=== PATIENT | female | born 1960 ===

== ENCOUNTER 2016-09-24 15:41 | Emergency (ER) | payer SELFPAY ==
[2016-09-24 15:51] VITALS: TEMP 97.7; O2SAT 100
--- NOTE | 2016-09-24 16:29 | ED PDOC ---
HPI: General Adult Time Seen by Provider: 09/24/16 15:53 Chief Complaint (Nursing): Abnormal Labs Chief Complaint (Provider): Abnormal Labs History Per: Patient History/Exam Limitations: no limitations Onset/Duration Of Symptoms: Days (since yesterday) Have you had recent travel within the past 21 days to any of the following countries: [place], [place], [place] or [place]?: No Current Symptoms Are (Timing): Still Present Severity: Mild Additional Complaint(s): Alina Mancia is a 56 year old female, with a past medical history of hypertension and chronic renal insufficiency, who presents to the emergency department for the evaluation of abnormal labs. Patient had lab work taken at a clinic yesterday and was prompted to come directly to the emergency room because something was abnormal; however, the patient is not unsure exactly what. She is otherwise in a normal state of health. Denies any other medical complaints. PMD: Meggan Breen Past Medical History Reviewed: Historical Data, Nursing Documentation, Vital Signs Vital Signs: Last Vital Signs Temp 97.7 F 09/24/16 15:48 Pulse 57 L 09/24/16 15:48 Resp 19 09/24/16 15:48 BP 136/88 09/24/16 15:48 Pulse Ox 100 09/24/16 16:37 - Medical History PMH: HTN, Chronic Kidney Disease - Surgical History Surgical History: No Surg Hx - Family History Family History: States: No Known Family Hx - Social History Current smoker - smoking cessation education provided: No Ex-Smoker (has not smoked in the last 12 months): No Alcohol: Occasional - Home Medications Home Medications: Ambulatory Orders Medication Instructions Recorded Ibuprofen [Motrin] 600 mg PO Q6 PRN #20 tab 10/17/14 Azithromycin [Zithromax Z-Douglas] 250 mg PO DAILY #1 tab 02/17/15 Codeine Phosphate/Promethazi 5 ml PO Q6 #80 ml 02/17/15 [Promethazine with Codeine 10 mg/5 ml-6.25 mg/] Guaifenesin/Pseudoephedrne HCl 1 tab PO DAILY PRN #30 ter 02/17/15 [Mucinex D 600 mg-60 mg] - Allergies Allergies/Adverse Reactions: Allergies Allergy/AdvReac Type Severity Reaction Status Date / Time No Known Allergies Allergy Verified 02/17/15 16:31 Review of Systems ROS Statement: Except As Marked, All Systems Reviewed And Found Negative Physical Exam - Reviewed Nursing Documentation Reviewed: Yes Vital Signs Reviewed: Yes - Physical Exam Appears: Positive for: Well, Non-toxic, No Acute Distress Head Exam: Positive for: ATRAUMATIC, NORMAL INSPECTION, NORMOCEPHALIC Skin: Positive for: Normal Color, Warm, Dry Eye Exam: Positive for: Normal appearance, EOMI, PERRL ENT: Positive for: Normal ENT Inspection. Negative for: Pharyngeal Erythema, Tonsillar Exudate Neck: Positive for: Normal, Painless ROM, Supple Cardiovascular/Chest: Positive for: Regular Rate, Rhythm. Negative for: Murmur Respiratory: Positive for: Normal Breath Sounds. Negative for: Wheezing, Respiratory Distress Gastrointestinal/Abdominal: Positive for: Normal Exam, Soft. Negative for: Tenderness Back: Positive for: Normal Inspection. Negative for: Decreased ROM Extremity: Positive for: Normal ROM. Negative for: Tenderness, Deformity Lymphatic: Negative for: Adenopathy Neurologic/Psych: Positive for: Alert, Oriented. Negative for: Motor/Sensory Deficits - Laboratory Results Result Diagrams: 09/24/16 16:50 09/24/16 17:20 - ECG O2 Sat by Pulse Oximetry: 100 (RA) Pulse Ox Interpretation: Normal Medical Decision Making Medical Decision Makin:53 Initial Impression: Abnormal labs Initial Plan: * EKG * CBC * CMP * PT/PTT * Troponin I * Magnesium * Phosphorous * Glucose, Blood, POC * Reevaluation 16:12 Provider reviewed labs from yesterday which show a mildly elevated potassium, magnesium, and phosphorous. BUN and creatinine are elevated as well, but are stable compared to previous ER visits. Scribe Attestation: Documented by Rolando Grullon, acting as a scribe for Ladonna Chang MD. Provider Scribe Attestation: All medical record entries made by the Scribe were at my direction and personally dictated by me. I have reviewed the chart and agree that the record accurately reflects my personal performance of the history, physical exam, medical decision making, and the department course for this patient. I have also personally directed, reviewed, and agree with the discharge instructions and disposition. Disposition - Clinical Impression Clinical Impression: Hyperkalemia Counseled Patient/Family Regarding: Studies Performed, Diagnosis, Need For Followup - Disposition Disposition: Routine/Home Disposition Time: 18:00 Condition: GOOD Additional Instructions: FOLLOW UP SCHEDULED WITH [facility] VISITA NEPHROLOGO PARA STEVENSON ANN. Instructions: Hyperkalemia (ED), Renal Failure Diet (DC) Print Language: BELARUSIAN
[2016-09-24 17:34] LABS: BASO # 0.1 K/uL (0.0-0.2); EOS # 0.4 K/uL (0.0-0.7); EOS % 8.1 % (0.0-4.0); HEMATOCRIT 32.9 % (34.0-47.0); LYMPH # 1.2 K/uL (1.0-4.3); LYMPH % 23.5 % (20.0-40.0); MEAN CELL VOLUME 87.7 fl (81.0-99.0); MEAN CORPUSCULAR HEMOGLOBIN 28.6 pg (27.0-31.0); MEAN CORPUSCULAR HGB CONC 32.6 g/dL (33.0-37.0); MEAN PLATELET VOLUME 8.9 fl (7.2-11.7); MONO # 0.5 K/uL (0.0-0.8); MONO % 10.2 % (0.0-10.0); NEUT # 2.9 K/uL (1.8-7.0); NEUT % 57.2 % (50.0-75.0); RED CELL DISTRIBUTION WIDTH 13.6 % (11.5-14.5)
[2016-09-24 17:47] LABS: PARTIAL THROMBOPLASTIN TIME 18.9 SECONDS (23.3-32.5)
[2016-09-24 18:02] LABS: ALB/GLOB RATIO 1.6 (1.0-2.1); ALKALINE PHOSPHATASE 82 U/L (38-126); ALT/SGPT 24 U/L (9-52); AST/SGOT 24 U/L (14-36); BILIRUBIN,TOTAL 0.4 mg/dl (0.2-1.3); BLOOD UREA NITROGEN 62 mg/dl (7-17); CALCIUM 9.3 mg/dL (8.4-10.2); CARBON DIOXIDE 17 mmol/L (22-30); CHLORIDE 108 mmol/L (98-107); GFR AFRICAN-AMERICAN 11; GLUCOSE,RANDOM 76 mg/dL (65-105); MAGNESIUM 2.5 MG/DL (1.6-2.3); PHOSPHOROUS 5.4 mg/dl (2.5-4.5); SODIUM 138 mmol/l (132-148); TOTAL PROTEIN 7.7 G/DL (6.3-8.2)
[2016-09-24 18:05] LABS: POTASSIUM 5.4 MMOL/L (3.6-5.0)
[2016-09-24] MEDS ORDERED: Sod Polystyrene Sulf 15 gm/60 ml Oral Susp PO ONE (18:09)
[2016-09-24] MEDS ORDERED: Sod Polystyrene Sulf 15 gm/60 ml Oral Susp ONE (19:10)
[2016-09-24 19:24] VITALS: BP 122/65; PULSE 62; RESP 16
--- NOTE | 2016-09-25 11:35 | CARD ---
APPROVED REPORT EKG Measurement Heart [id number] <Conclusion> Sinus bradycardia Minimal voltage criteria for LVH, may be normal variant Borderline ECG
== END 2016-09-24 19:22 | disposition home or self-care (01) ==
LOC: H.ER 15:41
DX: E87.5 Hyperkalemia (principal); I10 Essential (primary) hypertension; I12.9 Hypertensive chronic kidney disease with stage 1 through stage 4 chronic kidney disease, or unspecified chronic kidney disease

== ENCOUNTER 2016-10-11 12:47 | Emergency (ER) | payer SELFPAY ==
[2016-10-11 12:57] VITALS: BP 146/76; PULSE 58; RESP 18; TEMP 98; O2SAT 99
--- NOTE | 2016-10-11 13:16 | ED PDOC ---
Lower Extremity Pain/Injury Time Seen by Provider: 10/11/16 13:10 Chief Complaint (Nursing): Lower Extremity Problem/Injury Chief Complaint (Provider): Right foot pain History Per: Patient History/Exam Limitations: no limitations Onset/Duration Of Symptoms: Days (1) Current Symptoms Are (Timing): Still Present Severity: Moderate Additional History Per: Patient Additional Complaint(s): Pt is a 56yo female, presents with right foot pain s/p striking her right foot, on the webbed space between her 4th and 5th digit of her right foot. Pt reports she is able to walk but with pain. She reports taking Tylenol 250 mg PO for pain with some relief. Additionally states she might have had a fracture on the injured foot. Currently denies any other medical complaints. - Ankle/Foot Description Of Injury: Struck Against Object Past Medical History Reviewed: Historical Data, Nursing Documentation, Vital Signs Vital Signs: Last Vital Signs Temp 98 F 10/11/16 12:54 Pulse 58 L 10/11/16 12:54 Resp 18 10/11/16 12:54 BP 146/76 10/11/16 12:54 Pulse Ox 99 10/11/16 12:54 - Medical History PMH: HTN, Chronic Kidney Disease - Surgical History Surgical History: No Surg Hx - Family History Family History: States: Unknown Family Hx - Home Medications Home Medications: Ambulatory Orders Medication Instructions Recorded Ibuprofen [Motrin] 600 mg PO Q6 PRN #20 tab 10/17/14 Azithromycin [Zithromax Z-Douglas] 250 mg PO DAILY #1 tab 02/17/15 Codeine Phosphate/Promethazi 5 ml PO Q6 #80 ml 02/17/15 [Promethazine with Codeine 10 mg/5 ml-6.25 mg/] Guaifenesin/Pseudoephedrne HCl 1 tab PO DAILY PRN #30 ter 02/17/15 [Mucinex D 600 mg-60 mg] Acetaminophen [Acetaminophen Extra 2 tab PO Q6 PRN #24 tablet 10/11/16 Strength] Tramadol HCl [Ultram] 1 tab PO Q8 PRN #6 tablet 10/11/16 - Allergies Allergies/Adverse Reactions: Allergies Allergy/AdvReac Type Severity Reaction Status Date / Time No Known Allergies Allergy Verified 02/17/15 16:31 Review of Systems ROS Statement: Except As Marked, All Systems Reviewed And Found Negative Musculoskeletal: Positive for: Foot Pain (right) Physical Exam - Reviewed Nursing Documentation Reviewed: Yes Vital Signs Reviewed: Yes - Physical Exam Appears: Positive for: Well, Non-toxic, No Acute Distress Head Exam: Positive for: ATRAUMATIC, NORMAL INSPECTION, NORMOCEPHALIC Skin: Positive for: Normal Color Eye Exam: Positive for: Normal appearance Neck: Positive for: Normal Cardiovascular/Chest: Positive for: Regular Rate, Rhythm Respiratory: Negative for: Respiratory Distress Pulses-Dorsalis Pedis (R): 2+ Extremity: Positive for: Normal ROM, Tenderness (mild tenderness noted on right 5th toe), Other (no ecchymosis, bunion noted on foot). Negative for: Swelling Neurologic/Psych: Positive for: Alert, Oriented - ECG O2 Sat by Pulse Oximetry: 99 - Progress ED Course And Treament: XRY OF FOOT: (+) FX OF PROXIMAL PHALANX OF FIFTH DIGIT OF RIGHT FOOT TOES BUDDYTAPED AND PLACED IN HARD SHOE. Medical Decision Making Medical Decision Making: Time: 1310 Impression: Right foot pain Plan: * XR Right foot * Reassess Scribe Attestation: All records were documented by Bhavna Lyman, acting as a Scribe for TIFFANY Marquis. Provider Scribe Attestation: All medical record entries made by the Scribe were at my direction and personally dictated by me. I have reviewed the chart and agree that the record accurately reflects my personal performance of the history, physical exam, medical decision making, and the department course for this patient. I have also personally directed, reviewed, and agree with the discharge instructions and disposition. Disposition - Clinical Impression Clinical Impression: Toe fracture, right - Patient ED Disposition Is Patient to be Admitted: No - Disposition Referrals: Podiatry Clinic [Outside] Disposition: Routine/Home Disposition Time: 13:54 Condition: FAIR Prescriptions: Acetaminophen [Acetaminophen Extra Strength] 2 tab PO Q6 PRN #24 tablet PRN Reason: Pain, Severe (8-10) Tramadol HCl [Ultram] 1 tab PO Q8 PRN #6 tablet PRN Reason: Pain, Severe (8-10) Instructions: Toe Fracture (ED) Forms: [facility] ED School/Work Excuse Print Language: CYMRO
--- NOTE | 2016-10-11 13:54 | RAD ---
PROCEDURE: Right Foot Radiographs. HISTORY: injury to foot today right side COMPARISON: None. FINDINGS: BONES: Minimally displaced and partially impacted fracture involving the 5th proximal phalanx. A nondisplaced fracture involving the base of the 3rd proximal phalanx. JOINTS: Mild degenerative changes. SOFT TISSUES: Soft tissue swelling surrounding the 5th digit. OTHER FINDINGS: Hallux valgus. Hammertoe deformities 2nd through 5th digits. IMPRESSION: Minimally displaced fracture involving the 5th proximal phalanx. Nondisplaced fracture involving the base of the 3rd proximal phalanx. Associated soft tissue swelling. Other findings as above.
== END 2016-10-11 14:11 | disposition home or self-care (01) ==
LOC: H.ER 12:47
DX: S92.501A Displaced unspecified fracture of right lesser toe(s), initial encounter for closed fracture (principal); W22.8XXA Striking against or struck by other objects, initial encounter; Y92.89 Other specified places as the place of occurrence of the external cause; I10 Essential (primary) hypertension; I12.9 Hypertensive chronic kidney disease with stage 1 through stage 4 chronic kidney disease, or unspecified chronic kidney disease